=== PATIENT | female | born 1990 | race Caucasian/White ===

== ENCOUNTER 2022-01-09 02:41 | Emergency (ER) | payer SELFPAY ==
[2022-01-09 02:43] VITALS: BP 119/81; PULSE 96; RESP 20; TEMP 36.4; O2SAT 98; BMI 51.7
--- NOTE | 2022-01-09 02:52 | XRR_ITS ---
PROCEDURE INFORMATION: Exam: XR Right Ankle Exam date and time: 01/09/2022 3:39 AM Age: 31 years old Clinical indication: Injury or trauma; Fall; Blunt trauma; Ankle; Right; Additional info: Fall down stairs, right ankle pain TECHNIQUE: Imaging protocol: Radiologic exam of the Right ankle. Views: 3 or more views. COMPARISON: No relevant prior studies available. FINDINGS: Bones/joints: Obliquely oriented fracture of the distal fibula with mild comminution and displacement of fragments. The ankle mortise is disrupted with widening of the space between the talar dome and the medial malleolus up to 14 mm indicating medial collateral ligament tear. No additional fractures are seen. Soft tissues: Diffuse soft tissue swelling. XR/XR ankle RT min 3V* [id number] IMPRESSION: 1. Eversion injury of the ankle with oblique distal right fibula fracture with mild comminution and displacement, and evidence of disruption of the medial collateral ligament. 2. No additional fracture seen.
--- NOTE | 2022-01-09 02:52 | CTR_ITS ---
PROCEDURE INFORMATION: Exam: CT Cervical Spine Without Contrast Exam date and time: 01/09/2022 3:25 AM Age: 31 years old Clinical indication: Injury or trauma; Fall; Blunt trauma; Additional info: Fall down 10 stairs TECHNIQUE: Imaging protocol: Computed tomography of the cervical spine without contrast. Radiation optimization: All CT scans at this facility use at least one of these dose optimization techniques: automated exposure control; mA and/or kV adjustment per patient size (includes targeted exams where dose is matched to clinical indication); or iterative reconstruction. COMPARISON: CT head wo con* [id number] 01/09/2022 3:21 AM RADIATION DOSE METRICS: Total DLP (mGy-cm): 312.97 FINDINGS: Bones/joints: There is straightening of the alignment of the cervical spine, which may be related to positioning or muscle spasm. The skull base alignment appears normal. There are no fractures. The spinous processes are normal. The facet joint, spinolaminar and spinous process alignments are normal. The atlantodental alignment and craniocervical junction region appear unremarkable. C1-C2: Normal alignment. No spinal canal narrowing. C2-C3: The disc is unremarkable. Unremarkable facet joints. No central spinal stenosis. No neuroforaminal narrowing. C3-C4: The disc is unremarkable. Unremarkable facet joints. No central spinal stenosis. No neuroforaminal narrowing. C4-C5: The disc is unremarkable. Unremarkable facet joints. No central spinal stenosis. No neuroforaminal narrowing. C5-C6: The disc is unremarkable. Unremarkable facet joints. No central spinal stenosis. No neuroforaminal narrowing. C6-C7: The disc is unremarkable. Unremarkable facet joints. No central spinal stenosis. No neuroforaminal narrowing. C7-T1: The disc is unremarkable. Unremarkable facet joints. No central spinal stenosis. No neuroforaminal narrowing. Lungs: Lung apices are normal. Soft tissues: Prevertebral soft tissues are unremarkable. The paraspinal soft tissues appear unremarkable. Mild bilateral maxillary and ethmoid sinus soft tissue mucosal thickening is seen, consistent with sinus disease. Mild nasopharyngeal adenoidal enlargement is seen. Notes: MRI or CT myelogram may be performed for further evaluation, if there is clinical concern. CT/CT cervical spin wo con* [id number] IMPRESSION: No fractures or subluxations of the cervical spine.
--- NOTE | 2022-01-09 02:52 | CTR_ITS ---
PROCEDURE INFORMATION: Exam: CT Head Without Contrast Exam date and time: 01/09/2022 3:21 AM Age: 31 years old Clinical indication: Injury or trauma; Fall; Blunt trauma (contusions or hematomas); Additional info: Fall down 10 stairs. TECHNIQUE: Imaging protocol: Computed tomography of the head without contrast. Radiation optimization: All CT scans at this facility use at least one of these dose optimization techniques: automated exposure control; mA and/or kV adjustment per patient size (includes targeted exams where dose is matched to clinical indication); or iterative reconstruction. COMPARISON: No relevant prior studies available. RADIATION DOSE METRICS: Total DLP (mGy-cm): 1152.38 FINDINGS: Brain: The brain parenchyma is normal with normal barakat and white interfaces, sulci and gyri. Left anterior temporal fossa 3.6 x 3 x 4 cm CSF attenuation region is seen, consistent with an arachnoid cyst. There is associated moderate mass effect on the left anterior temporal region. Recommend MRI for further assessment. There are no intracranial masses, mass effect or midline shift. There is no cerebral edema. There is no subarachnoid hemorrhage. There are no intra-or extra-axial fluid collections, intraventricular or intraparenchymal hemorrhage. Cerebral ventricles: The lateral, third and fourth ventricles appear unremarkable. The suprasellar and basilar cisterns appear unremarkable. Paranasal sinuses: The visualized sinuses show mild bilateral maxillary sinus, mild bilateral ethmoid sinus and minimal bilateral sphenoid sinus mucosal thickening, consistent with sinus disease. Hypoplastic bilateral frontal sinuses are seen. Mastoid air cells: The visualized mastoids are unremarkable. Orbital cavities: The visualized orbits are unremarkable. Bones/joints: No definite acute osseous or skull abnormalities seen. Soft tissues: Unremarkable. Notes: If there is further clinical concern for intracranial pathology, MRI of the brain may be performed for further assessment. CT/CT head wo con* [id number] IMPRESSION: 1. No noncontrast CT evidence of acute posttraumatic intracranial abnormality. 2. Left anterior temporal fossa 3.6 x 3 x 4 cm CSF attenuation region, consistent with an arachnoid cyst. Associated moderate mass effect on the left anterior temporal region. Recommend MRI for further assessment.
[2022-01-09] MEDS: morphine 4 mg/mL SDV 1 mL IM (03:20)
[2022-01-09] MEDS: ziprasidone 20 mg/mL SDV 10 MG IM (03:20)
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
[2022-01-09 04:10] VITALS: BP 177/85; PULSE 85; RESP 16; O2SAT 97
[2022-01-09] MEDS: ondansetron 2 mg/ML SDV 2 mL 4 MG IVP (04:10)
[2022-01-09 04:17] VITALS: BP 135/95; PULSE 96; RESP 16; O2SAT 96
--- NOTE | 2022-01-09 04:20 | XRR_ITS ---
PROCEDURE INFORMATION: Exam: XR Right Tibia and Fibula Exam date and time: 01/09/2022 4:58 AM Age: 31 years old Clinical indication: Injury or trauma; Fall; Blunt trauma; Lower leg; Right; Additional info: Post splint TECHNIQUE: Imaging protocol: Radiologic exam of the Right tibia and fibula. Views: 2 views. COMPARISON: CR (LOW EXM, ) 01/09/2022 3:39 AM FINDINGS: Bones/joints: Mildly comminuted and displaced obliquely oriented fracture of the distal fibula. No significant angulation of fragments. Widening of the space between the talus and the medial malleolus indicating medial collateral ligament tear. Bones otherwise appear intact. Soft tissues: Diffuse soft tissue swelling surrounding the fracture. XR/XR tibia fibula RT 2V [id number] IMPRESSION: Mildly comminuted and displaced fracture of the right distal fibula. No significant angulation. Evidence of MCL tear.
--- NOTE | 2022-01-09 04:46 | PC.NURSE ---
Pt removed splint and threw it across the room. Pt was questioned by this RN as to why she took it off. Pt states she wants to go home.
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
== END 2022-01-09 05:21 | disposition home or self-care (01) ==
PROVIDERS: Emergency Provider Emergency Medicine
DX: S82.451A Displaced comminuted fracture of shaft of right fibula, initial encounter for closed fracture (principal); W10.8XXA Fall (on) (from) other stairs and steps, initial encounter
CPT/HCPCS: 27788; 70450; 72125; 73590; 73610; 96372; 96374; 99285; J2270; J2405; J3486; J3490